=== PATIENT | female | born 1990 | race African-American/Black ===

== ENCOUNTER 2019-03-03 12:36 | Outpatient (CLI) | payer OTHER | END 2019-03-03 12:37 | disposition home or self-care (01) | LOC: DTY/OP 12:36 | PROVIDERS: ATTEND Surgery | DX: E66.01 Morbid (severe) obesity due to excess calories (principal) | CPT/HCPCS: 97802 ==

== ENCOUNTER 2019-04-05 10:22 | Outpatient (CLI) | payer OTHER | END 2019-04-05 10:23 | disposition home or self-care (01) | LOC: DTY/OP 10:22 | PROVIDERS: ATTEND Family Medicine | DX: E66.01 Morbid (severe) obesity due to excess calories (principal) | CPT/HCPCS: 97802 ==

== ENCOUNTER 2019-05-04 15:37 | Outpatient (CLI) | payer OTHER | END 2019-05-04 15:38 | disposition home or self-care (01) | LOC: DTY/OP 15:37 | PROVIDERS: ATTEND Family Medicine | DX: E66.01 Morbid (severe) obesity due to excess calories (principal) | CPT/HCPCS: 97802 ==

== ENCOUNTER 2019-06-05 15:51 | Outpatient (CLI) | payer OTHER | END 2019-06-05 15:52 | disposition home or self-care (01) | LOC: DTY/OP 15:51 | PROVIDERS: ATTEND Family Medicine | DX: E66.01 Morbid (severe) obesity due to excess calories (principal) | CPT/HCPCS: 97802 ==

== ENCOUNTER 2019-10-10 07:44 | Outpatient (CLI) | payer OTHER ==
--- NOTE | 2019-10-10 08:48 | ULT ---
US Abdominal: 10/10/2019 12:00 AM CLINICAL HISTORY: Right upper quadrant/right lower quadrant abdominal pain. STUDY: Complete abdominal ultrasound COMPARISON: None. FINDINGS: Liver: Size: Normal. Echogenicity: Normal. Contour: Smooth. Mass: None. Common bile duct: 2 mm Gallbladder: Normal. Pancreas: Not seen. Inferior vena cava: Normal in caliber Aorta: Normal in caliber Spleen: No focal lesions. Spleen measuring 9.7 cm in length. Right kidney: No pelvicalyceal dilatation. Right kidney measuring 10.3 cm in length. Left kidney: No pelvicalyceal dilatation. Left kidney measuring 12.4 cm in length. There is a large anechoic fluid collection extending from the sternum down to the pelvis measuring 27 .7 x 22.0 x 29.3 cm in size. IMPRESSION: 1. Large fluid collection along the anterior aspect of the peritoneum. A CT of the abdomen and pelvis with oral and IV contrast is recommended for further evaluation.
== END 2019-10-10 07:45 | disposition home or self-care (01) ==
LOC: ULT 07:44
PROVIDERS: ATTEND Family Medicine
DX: R10.31 Right lower quadrant pain (principal); R18.8 Other ascites
CPT/HCPCS: 36415; 83036; 93975

== ENCOUNTER 2019-10-16 08:06 | Outpatient (CLI) | payer OTHER ==
--- NOTE | 2019-10-16 10:28 | CT ---
CT ABDOMEN AND PELVIS WITH IV CONTRAST: Date: 10/16/19 PROVIDED CLINICAL HISTORY: Right-sided abdominal pain, abnormal ultrasound. FINDINGS: There is mild elevation of the right hemidiaphragm with adjacent probable subsegmental atelectatic ch wisam. There is a small amount of free intraperitoneal fluid about the cranial right hepatic margin. There is a large cystic mass located spanning the central aspects of the caudal abdomen and cranial p bela. This measures at least 32 cm in craniocaudal dimension, at least 31 cm in transverse dimension , and at least 21.7 cm in AP dimension. This demonstrates several thick septations at its left latera l margin with associated calcification and mural enhancement. This produces displacement of loops of bowel. There is a small amount of free fluid within the pelvis, as well as within the right paracolic gutter as well. This is contiguous with and inseparable from both the uterine fundus and a mixed sof t tissue and fat density right hemipelvic mass that measures at least 9.4 x 7.0 cm in greatest AP x t ransverse dimensions and at least 6.7 cm in craniocaudal dimension. This smaller pelvic mass displace s the urinary bladder leftward and inferiorly. There is no bowel dilatation, inflammatory fat stranding, or free air apparent. There is no evidence for lymph node enlargement. The solid abdominal organs demonstrate an unremarkable CT appearance. The osseous structures demonstrate no concerning lytic or blastic lesions. IMPRESSION: 1. Large abdominopelvic complex cystic mass, probably ovarian in origin. This may reflect a large cy stic component of an ovarian dermoid versus a separate cystic ovarian neoplasm. A right hemipelvis ma ss with macroscopic fat component is inseparable from this cystic mass as described above. [employer] consul tation is recommended. 2. Small amount of free intraperitoneal fluid. POS: OFF
[2019-10-16] MEDS ORDERED: Iopamidol-370 76% 500 ML 1 ML ONE (11:01)
== END 2019-10-16 08:07 | disposition home or self-care (01) ==
LOC: BICCT 08:06
PROVIDERS: ATTEND Family Medicine
DX: R93.5 Abnormal findings on diagnostic imaging of other abdominal regions, including retroperitoneum (principal); N94.89 Other specified conditions associated with female genital organs and menstrual cycle
CPT/HCPCS: 74177; Q9967

== ENCOUNTER 2020-07-05 12:00 | Inpatient (IN) | payer OTHER ==
[2020-07-16] MEDS ORDERED: Bupivacaine 0.25% HCL 30 ML VIAL ONE (06:58)
[2020-07-16] MEDS ORDERED: Lidocaine 1% w/Epinephrine 1:100K 20 ML VIAL ONE (06:58)
[2020-07-16] MEDS ORDERED: Fentanyl 250 MCG/5 ML VIAL ONE (07:02)
[2020-07-16] MEDS ORDERED: SUGAMMADEX SODIUM 500 MG/5 ML VIAL ONE (07:02)
[2020-07-16] MEDS ORDERED: Heparin 5,000 UNITS/ML VIAL ONE (07:21)
--- NOTE | 2020-07-16 07:51 | RAD ---
EXAM: Single view of the chest HISTORY: Preoperative radiograph COMPARISON: None FINDINGS: Single view of the chest shows a normal sized cardiomediastinal silhouette. There is no kathi dence of consolidation, mass, or pleural effusion. No acute osseous abnormality. IMPRESSION: No evidence of acute cardiopulmonary disease
[2020-07-16] MEDS ORDERED: Dextrose 5% in Water 1,000 ML IV PRN (08:46)
[2020-07-16] MEDS ORDERED: Dextrose 50% Abboject 50 ML SYRINGE SLOW IVP PRN (08:46)
[2020-07-16] MEDS ORDERED: diphenhydrAMINE 50 MG/ML VIAL IVP PRN (08:46)
[2020-07-16] MEDS ORDERED: Promethazine HCl 25 MG/ML VIAL IM PRN ×3 (08:46→08:57)
[2020-07-16] MEDS ORDERED: hydrALAZINE 20 MG/ML VIAL SLOW IVP PRN (08:46)
[2020-07-16] MEDS ORDERED: Ondansetron PF 4 MG/2 ML Vial IVP PRN (08:46)
[2020-07-16] MEDS ORDERED: HumaLOG 300 UNITS/3 ML VIAL SC PRN (08:46)
[2020-07-16] MEDS ORDERED: Hydrocodone-Acetamin 15 ML UDCUP PO PRN (08:46)
[2020-07-16] MEDS ORDERED: Naloxone HCl 0.4 mg/ml Vial IV PRN (08:53)
[2020-07-16] MEDS ORDERED: fentaNYL Citrate/PF 2,000 MCG in Sodium Chloride 0.9% 60 ML IV PRN (08:53)
[2020-07-16] MEDS ORDERED: Zolpidem Tartrate 5 MG TAB PO PRN (08:53)
[2020-07-16] MEDS ORDERED: diphenhydrAMINE 25 MG CAP PO PRN (08:53)
[2020-07-16] MEDS ORDERED: diphenhydrAMINE 50 MG/ML VIAL IM/IV PRN (08:53)
[2020-07-16] MEDS ORDERED: Promethazine HCl 25 MG/ML VIAL SLOW IVP PRN (08:57)
[2020-07-16] MEDS ORDERED: Ondansetron HCl/PF 4 MG/2 ML Vial IVP PRN (08:57)
[2020-07-16] MEDS ORDERED: Ondansetron PF 4 MG/2 ML Vial ONE ×2 (08:58→09:37)
[2020-07-16] MEDS ORDERED: Fentanyl 100 MCG/2 ML VIAL ONE (09:02)
--- NOTE | 2020-07-16 09:31 | OP ---
DATE OF PROCEDURE: 07/16/2020 PREOPERATIVE DIAGNOSES: 1. Morbid obesity with a body mass index of 57. 2. Hypertension. 3. Type 2 diabetes. 4. Hyperlipidemia. POSTOPERATIVE DIAGNOSES: 1. Morbid obesity with a body mass index of 57. 2. Hypertension. 3. Type 2 diabetes. 4. Hyperlipidemia. PROCEDURES PERFORMED: 1. Laparoscopic sleeve gastrectomy with [place] staple line reinforcements and 38-[place] bougie. 2. Esophagogastroduodenoscopy. ANESTHESIA: General. ESTIMATED BLOOD LOSS: Minimal. COMPLICATIONS: None. SPECIMEN: Stomach. FINDINGS: Normal postoperative EGD. TECHNIQUE: The patient was taken to the operating room and laid supine on the operating room table. After general anesthetic was obtained, her arms and legs were double strapped to bariatric table. OG tube was used to decompress the stomach. The abdomen was prepped and draped in a sterile fashion. Left subcostal 5-mm Optiview trocar placed in usual fashion without injury and high-flow pneumoperitoneum was obtained. Left and right abdominal 12 mm ports as well as a right subcostal 5-mm port were placed under direct visualization. A 5-mm incision was made at the xiphoid and the Twin was used to raise the liver off the GE junction. Short gastrics were taken down midbody stomach to left yosef of diaphragm. Left yosef, posterior fundus, angle of His were completely dissected. There was no hiatal hernia. Short gastrics were then taken down 5 to 6 cm proximal to the pylorus. OG was removed and a 38-bougie was brought and its tip was left in the antrum of the stomach. Multiple loads of [place] stapling device was used to form the sleeve. The 1st was fired up at a distance of 6 cm proximal to the pylorus, angled up towards the incisura. Care was taken to avoid being too close the incisura. Multiple loads were then fired up along the bougie. Stomach was completely safe, transected at the angle of His. The stomach was removed from the left abdominal incision. This fascial defect was closed using [place] needle 0-Vicryl tie. EGD scope was passed through the esophagus, stomach to the level of duodenum without obstruction. There was no stricture at the incisura. There was no air leakage or bleeding along the staple line. EGD scope was used to decompress the stomach and it was pulled and removed. Twin retractor was removed under direct visualization without bleeding or injury. All port sites are infiltrated using local anesthetic and removed without bleeding. Pneumoperitoneum was let down. Vicryl was used to close the fascial defect from the left abdominal incisions. All incisions were irrigated and closed using 4-0 Monocryl and Dermabond. The patient was sent to Recovery in stable condition. All instrument counts, needle counts, and lap counts were correct. Job ID: [id number]
[2020-07-16] MEDS ORDERED: Glycopyrrolate 0.2 MG/ML 5 ML SYRINGE ONE (09:37)
[2020-07-16] MEDS ORDERED: Dexamethasone 20 MG/5 ML VIAL ONE (09:37)
[2020-07-16] MEDS ORDERED: Lidocaine 1% PF 5 ML VIAL ONE (09:37)
[2020-07-16] MEDS ORDERED: PROPOFOL 200 MG/20 ML VIAL ONE (09:37)
[2020-07-16] MEDS ORDERED: Rocuronium Bromide 10 MG/ML (10ML VIAL) ONE (09:37)
[2020-07-16 10:30] VITALS: BMI 55.3
[2020-07-16] MEDS: Pantoprazole 40 MG VIAL IVP SCH (10:51)
[2020-07-16] MEDS: Ondansetron PF 4 MG/2 ML Vial IVP PRN ×2 (15:54→21:33)
[2020-07-16] MEDS: Sodium Chloride 0.9% 1,000 ML IV SCH ×3 (15:59→21:42)
[2020-07-16] MEDS ORDERED: Enoxaparin Sodium 40 MG/0.4 ML SYRINGE SC SCH (21:00)
[2020-07-17] MEDS: Ondansetron PF 4 MG/2 ML Vial IVP PRN ×3 (04:07→16:53)
[2020-07-17 05:16] LABS: #Lymphocytes 1.6 thou/uL (1.20-3.40); #Monocytes 0.4 thou/uL (0.11-0.59); #Neutrophils 6.9 thou/uL (1.40-6.50); %Basophils 0.3 % (0.0-1.0); %Eosinophils 0.2 % (0.0-10.0); %Lymphocytes 17.7 % (21.0-51.0); %Monocytes 4.6 % (0.0-10.0); %Neutrophils 77.2 % (42.0-75.0); Hemoglobin 11.3 g/dL (12.0-16.0); Mean Corpuscular HGB CONC 31.8 g/dL (32.0-36.0); Mean Corpuscular Hemoglobin 28.5 pg (27.0-31.0); Mean Corpuscular Volume 89.6 fL (78.0-98.0); Mean Platelet Volume 6.8 fL (7.4-10.4); Platelet Count 269 thou/uL (130-400); RBC Distribution Width 14.6 % (11.5-14.5); Red Blood Cell (RBC) Count 3.95 mill/uL (4.20-5.40)
[2020-07-17 05:34] LABS: Anion Gap 14 mmol/L (10-20); BUN (Urea Nitrogen) 6 mg/dL (7.0-18.7); Calc. Creatinine Clearance 323 mL/min (70-130); Calcium 8.4 mg/dL (7.8-10.44); Carbon Dioxide 22 mmol/L (22-29); Chloride 105 mmol/L (98-107); Estimated GFR-MDRD Greater than 90; Glucose 119 mg/dL (70-105); Potassium 3.3 mmol/L (3.5-5.1); Sodium 138 mmol/L (136-145)
[2020-07-17] MEDS: Sodium Chloride 0.9% 1,000 ML IV SCH ×2 (06:33→16:51)
[2020-07-17] MEDS: Pantoprazole 40 MG VIAL IVP SCH (09:20)
[2020-07-17 16:01] VITALS: BP 151/96; TEMP 98.3
[2020-07-17] MEDS ORDERED: Hydrocodone-Acetamin 15 ML UDCUP PO PRN (16:07)
== END 2020-07-17 18:20 | disposition home or self-care (01) | DRG 621 ==
LOC: SURG A 07-16 05:56 → SJJU 07-16 09:38
PROVIDERS: ADMIT Surgery; ATTEND Surgery
PROC: 0DB64Z3 Excision of Stomach, Percutaneous Endoscopic Approach, Vertical (ICD-10-PCS; principal; 2020-07-16)
PROC: 0DJ08ZZ Inspection of Upper Intestinal Tract, Via Natural or Artificial Opening Endoscopic (ICD-10-PCS; 2020-07-16)
DX: E66.01 Morbid (severe) obesity due to excess calories (principal); I10 Essential (primary) hypertension; E11.9 Type 2 diabetes mellitus without complications; E78.5 Hyperlipidemia, unspecified; Z68.43 Body mass index [BMI] 50.0-59.9, adult
CPT/HCPCS: 36415; 36416; 71045; 80048; 85025; 88307; 88312; 94760; C9113; J0690; J1100; J1644; J1650; J2405; J2704; J3010; S0020

== ENCOUNTER 2020-07-12 06:31 | Outpatient (CLI) | payer OTHER ==
[2020-07-12 16:17] LABS: #Basophils 0.1 thou/uL (0.0-0.2); #Eosinphils 0.2 thou/uL (0.0-0.7); #Lymphocytes 3.7 thou/uL (1.20-3.40); #Monocytes 0.5 thou/uL (0.11-0.59); #Neutrophils 4.9 thou/uL (1.40-6.50); %Basophils 0.6 % (0.0-1.0); %Eosinophils 2.2 % (0.0-10.0); %Lymphocytes 39.4 % (21.0-51.0); %Monocytes 5.6 % (0.0-10.0); %Neutrophils 52.2 % (42.0-75.0); Hemoglobin 12.7 g/dL (12.0-16.0); Mean Corpuscular HGB CONC 31.9 g/dL (32.0-36.0); Mean Corpuscular Hemoglobin 28.5 pg (27.0-31.0); Mean Corpuscular Volume 89.3 fL (78.0-98.0); Platelet Count 311 thou/uL (130-400); RBC Distribution Width 14.7 % (11.5-14.5); Red Blood Cell (RBC) Count 4.45 mill/uL (4.20-5.40); White Blood Cell (WBC) Count 9.5 thou/uL (4.8-10.8)
[2020-07-12 16:51] LABS: Hemoglobin A1c 6.5 % (4.0-6.0)
[2020-07-12 17:02] LABS: ALT (SGPT) 12 U/L (8-55); AST (SGOT) 13 U/L (5-34); Albumin 4.3 g/dL (3.5-5.0); Alkaline Phosphatase 108 U/L (40-110); Anion Gap 15 mmol/L (10-20); BUN (Urea Nitrogen) 20 mg/dL (7.0-18.7); Bilirubin, Total 0.3 mg/dL (0.2-1.2); Calc. Creatinine Clearance 0 mL/min (70-130); Calcium 9.3 mg/dL (7.8-10.44); Carbon Dioxide 27 mmol/L (22-29); Chloride 101 mmol/L (98-107); Estimated GFR-MDRD Greater than 90; Globulin 2.8 g/dL (2.4-3.5); Glucose 108 mg/dL (70-105); Potassium 3.8 mmol/L (3.5-5.1); Protein, Total 7.1 g/dL (6.0-8.3); Sodium 139 mmol/L (136-145)
[2020-07-13 12:20] LABS: SARS-CoV-2 MS2 Positive; SARS-CoV-2 N Gene Negative; SARS-CoV-2 S Gene Negative; SARS-CoV-2 by NAA Not Detected (NotDetected); SARS-CoV-2 orf1ab Negative
== END 2020-07-12 06:32 | disposition home or self-care (01) ==
LOC: LABBT 06:31
PROVIDERS: ATTEND Surgery
DX: Z01.818 Encounter for other preprocedural examination (principal); Z20.828 Contact with and (suspected) exposure to other viral communicable diseases; E66.01 Morbid (severe) obesity due to excess calories
CPT/HCPCS: 80053; 83036; 85025; 87635; 93005; 93010; U0003